=== PATIENT | male | born 1970 | race Caucasian/White ===

== ENCOUNTER 2022-03-11 22:07 | Emergency (ER) | payer MEDICARE, OTHER ==
[~2022-03-11 22:07] MED LIST: ZOFRAN4 MG PO
[2022-03-11 22:45] LABS: BASOPHIL 0.4 % (0-2); EOSINOPHIL 1.1 % (0-5); HCT 43.9 % (42.0-52.0); HGB 15.6 g/dl (13.2-18.0); LYMPHOCYTE 22.6 % (15-48); MCH 30.1 pg (25.0-31.0); MCHC 35.5 g/dL (32.0-36.0); MCV 84.7 fL (78.0-100.0); MONOCYTE 9.5 % (0-12); MPV 9.8 fL (6.0-9.5); NRBC 0; PLT 340 K/uL (150-400); RBC 5.18 M/uL (4.70-6.00); WBC 10.4 K/uL (4.0-10.5)
[2022-03-11 23:04] LABS: ALBUMIN 4.6 g/dL (3.4-5.0); BUN/CREAT RATIO (CALC) 20.9 RATIO; CREATININE 1.29 mg/dL (0.67-1.17); GLOBULIN (CALCULATION) 3.4 g/dL; MAGNESIUM 1.8 mg/dL (1.8-2.4); POTASSIUM 3.8 mmol/L (3.5-5.1)
[2022-03-11 23:06] LABS: LACTIC ACID 1.4 mmol/L (0.4-1.9)
[2022-03-11 23:29] LABS: CORONAVIRUS 2019 SARS-COV-2 NEGATIVE (NEGATIVE); INFLUENZA A NAA NEGATIVE (NEGATIVE)
[2022-03-12 01:21] LABS: BILIRUBIN NEGATIVE (NEGATIVE); BLOOD TRACE-INTACT Ery/uL (NEGATIVE); CLARITY CLEAR (CLEAR); COLOR YELLOW (YELLOW); GLUCOSE (U) NORMAL (NORMAL); LEUKOCYTES 1+ Leu/uL (NEGATIVE); NITRITE NEGATIVE (NEGATIVE); PROTEIN NEGATIVE (NEGATIVE); SPECIFIC GRAVITY 1.025 (1.001-1.030)
[2022-03-12 01:28] LABS: BACTERIA 2+; CALCIUM OXALATE CRYSTALS TRACE
[2022-03-12 01:29] LABS: AMORPHOUS URATES CRYSTALS TRACE
[2022-03-12 01:38] LABS: AMPHETAMINES NEGATIVE (NEGATIVE); BARBITURATES NEGATIVE (NEGATIVE); ECSTASY (MDMA) NEGATIVE (NEGATIVE); MARIJUANA (THC) NEGATIVE (NEGATIVE); METHADONE NEGATIVE (NEGATIVE); OPIATES NEGATIVE (NEGATIVE); OXYCODONE NEGATIVE (NEGATIVE)
== END 2022-03-12 04:31 | disposition home or self-care (01) ==
LOC: FER 22:07
PROVIDERS: Internal Medicine
DX: E86.0 Dehydration (principal); R56.9 Unspecified convulsions; N17.9 Acute kidney failure, unspecified; N39.0 Urinary tract infection, site not specified; E11.9 Type 2 diabetes mellitus without complications; Z20.822 Contact with and (suspected) exposure to COVID-19
CPT/HCPCS: 36415; 70450; 71250; 72125; 72128; 80053; 80305; 81001; 83605; 83690; 83735; 83880; 84145; 84439; 84443; 84484; 85025; 87088; 93005; 96372; J0696; J1953; J2405; J7040; J7120; U0002

== ENCOUNTER 2022-04-20 16:03 | Emergency (ER) | payer MEDICARE, OTHER ==
[2022-04-20 17:21] LABS: BASOPHIL 0.4 % (0-2); EOSINOPHIL 0.7 % (0-5); HCT 43.5 % (42.0-52.0); HGB 14.9 g/dl (13.2-18.0); LYMPHOCYTE 9.6 % (15-48); MCH 29.7 pg (25.0-31.0); MCHC 34.3 g/dL (32.0-36.0); MCV 86.8 fL (78.0-100.0); MONOCYTE 7.7 % (0-12); MPV 9.8 fL (6.0-9.5); NRBC 0; PLT 297 K/uL (150-400); RBC 5.01 M/uL (4.70-6.00); RDW 12.2 % (11.5-14.0); WBC 14.9 K/uL (4.0-10.5)
[2022-04-20 17:37] LABS: BILIRUBIN NEGATIVE (NEGATIVE); BLOOD NEGATIVE Ery/uL (NEGATIVE); CLARITY CLEAR (CLEAR); COLOR YELLOW (YELLOW); GLUCOSE (U) NORMAL (NORMAL); LEUKOCYTES 1+ Leu/uL (NEGATIVE); NITRITE NEGATIVE (NEGATIVE); PROTEIN NEGATIVE (NEGATIVE); SPECIFIC GRAVITY 1.015 (1.001-1.030); pH 7.5 (5.0-9.0)
[2022-04-20 17:42] LABS: AMPHETAMINES NEGATIVE (NEGATIVE); BARBITURATES NEGATIVE (NEGATIVE); ECSTASY (MDMA) NEGATIVE (NEGATIVE); MARIJUANA (THC) NEGATIVE (NEGATIVE); METHADONE NEGATIVE (NEGATIVE); OPIATES NEGATIVE (NEGATIVE); OXYCODONE NEGATIVE (NEGATIVE)
[2022-04-20 17:49] LABS: ALBUMIN 4.3 g/dL (3.4-5.0); BILIRUBIN - TOTAL 1.1 mg/dL (0.2-1.0); BUN/CREAT RATIO (CALC) 11.6 RATIO; CREATININE 1.21 mg/dL (0.67-1.17); GLOBULIN (CALCULATION) 3.1 g/dL; POTASSIUM 4.8 mmol/L (3.5-5.1); TOTAL PROTEIN 7.4 g/dL (6.4-8.2)
[2022-04-20 17:52] LABS: BACTERIA TRACE; SQUAMOUS EPITHELIAL CELLS RARE; URINARY RBC RARE
== END 2022-04-20 20:00 | disposition home or self-care (01) ==
LOC: FER 16:03
PROVIDERS: Nurse Practitioner Family
DX: R55 Syncope and collapse (principal); E11.9 Type 2 diabetes mellitus without complications; Z88.0 Allergy status to penicillin; Z79.84 Long term (current) use of oral hypoglycemic drugs
CPT/HCPCS: 36415; 71045; 80053; 80305; 81001; 84484; 85025; 87088; 93005; J7030

== ENCOUNTER 2022-07-02 15:46 | Emergency (ER) | payer MEDICARE, OTHER ==
[2022-07-02 17:03] LABS: INR 1.03 (0.9-1.2); PROTHROMBIN TIME 13.2 SECONDS (11.9-13.9)
[2022-07-02 17:06] LABS: BASOPHIL 0.6 % (0-2); EOSINOPHIL 7.2 % (0-5); HCT 42.6 % (42.0-52.0); HGB 14.3 g/dl (13.2-18.0); LYMPHOCYTE 24.7 % (15-48); MCH 30.1 pg (25.0-31.0); MCHC 33.6 g/dL (32.0-36.0); MCV 89.7 fL (78.0-100.0); MONOCYTE 11.1 % (0-12); MPV 9.9 fL (6.0-9.5); NEUTROPHIL 56.1 % (41-80); NRBC 0; PLT 268 K/uL (150-400); RBC 4.75 M/uL (4.70-6.00); RDW 12.1 % (11.5-14.0); WBC 6.2 K/uL (4.0-10.5)
[2022-07-02 17:06] LABS: BILIRUBIN NEGATIVE (NEGATIVE); BLOOD TRACE-INTACT Ery/uL (NEGATIVE); CLARITY CLEAR (CLEAR); COLOR YELLOW (YELLOW); GLUCOSE (U) NORMAL (NORMAL); LEUKOCYTES NEGATIVE Leu/uL (NEGATIVE); NITRITE NEGATIVE (NEGATIVE); PROTEIN NEGATIVE (NEGATIVE); UROBILINOGEN 0.2 mg/dL (0.2-1.0); pH 6.5 (5.0-9.0)
[2022-07-02 17:12] LABS: AMPHETAMINES NEGATIVE (NEGATIVE); BARBITURATES NEGATIVE (NEGATIVE); ECSTASY (MDMA) NEGATIVE (NEGATIVE); MARIJUANA (THC) NEGATIVE (NEGATIVE); METHADONE NEGATIVE (NEGATIVE); OPIATES NEGATIVE (NEGATIVE); OXYCODONE NEGATIVE (NEGATIVE)
[2022-07-02 17:58] LABS: ALBUMIN 3.9 g/dL (3.4-5.0); BUN 11 mg/dL (7-18); CHLORIDE 105 mmol/L (98-107); CO2 (BICARBONATE) 30 mmol/L (21-32); CREATININE 0.96 mg/dL (0.67-1.17); GLOBULIN (CALCULATION) 3.3 g/dL; GLUCOSE 111 mg/dL (74-106); TOTAL PROTEIN 7.2 g/dL (6.4-8.2)
[2022-07-02 17:59] LABS: ACETAMINOPHEN (TYLENOL) <2.0 ug/mL (10.0-30.0); ALKALINE PHOSHATASE 95 U/L (46-116); ALT 20 U/L (16-63); AST 16 U/L (15-37); BILIRUBIN - TOTAL 0.9 mg/dL (0.2-1.0); CPK 120 U/L (39-308)
[2022-07-02 21:20] LABS: CORONAVIRUS 2019 SARS-COV-2 NEGATIVE (NEGATIVE); INFLUENZA A NAA NEGATIVE (NEGATIVE)
== END 2022-07-03 05:50 | disposition other institution (70) ==
LOC: FER 15:46
PROVIDERS: Internal Medicine
DX: S02.2XXA Fracture of nasal bones, initial encounter for closed fracture (principal); S02.401A Maxillary fracture, unspecified side, initial encounter for closed fracture; L03.213 Periorbital cellulitis; R00.1 Bradycardia, unspecified; R55 Syncope and collapse; E11.9 Type 2 diabetes mellitus without complications; I10 Essential (primary) hypertension; Z88.0 Allergy status to penicillin; Z20.822 Contact with and (suspected) exposure to COVID-19; X58.XXXA Exposure to other specified factors, initial encounter; Y92.9 Unspecified place or not applicable
CPT/HCPCS: 36415; 70450; 70480; 70486; 71250; 72125; 80053; 80305; 81001; 82140; 82550; 83605; 83880; 84484; 85025; 85610; 85730; 87040; 93005; G0480; J0696; J2310; J7030; Q9967; U0002